=== PATIENT | female | born 1980 | race Native Hawaiian/Other Pacific Islander ===

== ENCOUNTER 2016-06-03 19:29 | Emergency (ER) | payer BC ==
[~2016-06-03] VITALS: Ht 157.5 cm; Wt 108.4 kg
[2016-06-03 21:42] VITALS: BP 147/92; TEMP 98.9
== END 2016-06-03 21:42 | disposition home or self-care (01) ==
LOC: ED 19:29
DX: J20.9 Acute bronchitis, unspecified (principal); R50.9 Fever, unspecified; J06.9 Acute upper respiratory infection, unspecified; J18.9 Pneumonia, unspecified organism
CPT/HCPCS: 81025; 87081; 87804; 87880; 99283

== ENCOUNTER 2021-11-26 09:33 | Outpatient (CLI) | payer BC | END 2021-11-26 21:02 | disposition home or self-care (01) | LOC: US 09:33 | PROVIDERS: ATTEND Registered Nurse | DX: R74.8 Abnormal levels of other serum enzymes (principal) ==